=== PATIENT | female | born 1980 | race Two or more races ===

== ENCOUNTER → 2021-07-22 10:25 | Outpatient (CLI) | payer SELFPAY | PROVIDERS: Visit Provider Obstetrics & Gynecology | DX: Z34.90 Encounter for supervision of normal pregnancy, unspecified, unspecified trimester (principal) | CPT/HCPCS: 36415; 84702 ==

== ENCOUNTER → 2021-08-21 11:18 | Outpatient (CLI) | payer SELFPAY ==
[2021-08-21 12:31] LABS: Hematocrit 40.7 % (37.0-47.0); Hemoglobin 13.7 g/dL (12.2-16.2)
== END ==
PROVIDERS: Visit Provider Nurse Practitioner Obstetrics & Gynecology
DX: Z34.90 Encounter for supervision of normal pregnancy, unspecified, unspecified trimester (principal)
CPT/HCPCS: 36415; 85014; 85018; 86850; 86870

== ENCOUNTER → 2021-09-20 08:19 | Outpatient (CLI) | payer SELFPAY ==
[2021-09-20 08:42] LABS: Glucose,Fasting 209 mg/dl (74-100)
[2021-09-20 10:08] LABS: Glucose 1 Hour 339 mg/dL (74-100)
== END ==
PROVIDERS: Visit Provider Nurse Practitioner Obstetrics & Gynecology
DX: Z34.90 Encounter for supervision of normal pregnancy, unspecified, unspecified trimester (principal)
CPT/HCPCS: 36415; 82951

== ENCOUNTER → 2021-12-31 10:52 | Outpatient (CLI) | payer SELFPAY | PROVIDERS: Visit Provider Nurse Practitioner Obstetrics & Gynecology | DX: O36.1990 Maternal care for other isoimmunization, unspecified trimester, not applicable or unspecified (principal) | CPT/HCPCS: 36415 ==

== ENCOUNTER 2022-01-14 14:00 | Outpatient (CLI) | payer SELFPAY ==
[2022-01-14] VITALS (11 sets, daily range): BP systolic 144–187; BP diastolic 68–104; PULSE 88–121; RESP 17–20; TEMP 36.6; O2SAT 98; BMI 40.4
[2022-01-14 15:01] LABS: Microscopic, Urine URINE MICROSCOPIC (MICROSCOPIC)
[2022-01-14 15:06] LABS: Basophils # 0.1 K/mm3 (0-0.2); Basophils % 0.5 % (0.1-2.0); Eosinophils # 0.2 K/mm3 (0.0-0.4); Eosinophils % 1.5 % (0.1-12.0); Hematocrit 41.1 % (37.0-47.0); Lymphocytes # 2.5 K/mm3 (0.7-4.5); Lymphocytes % 23.2 % (10-50); Mean Corpuscular HGB Conc 34.1 g/dL (31.8-35.4); Mean Corpuscular Hemoglobin 29.5 pg (27.0-31.2); Mean Corpuscular Volume 86.3 fl (81-99); Mean Platelet Volume 14.4 fl (7.4-10.4); Monocytes # 0.8 K/mm3 (0.1-1.0); Monocytes % 6.9 % (1.7-9.3); Neutrophils # 7.4 K/mm3 (1.8-7.8); Neutrophils % 67.9 % (37.0-80.0); Platelet Count 153 K/mm3 (142-424); Red Blood Count 4.76 M/mm3 (4.20-5.40); Red Cell Distribution Width 14.3 % (11.5-17.5); White Blood Count 10.9 K/mm3 (4.8-10.8)
[2022-01-14 15:13] LABS: Appearance,Urine SL CLOUDY (Clear); Bilirubin,Urine Negative (Negative); Blood, Urine TRACE-I (Negative); Color,Urine YELLOW (Yellow); Glucose,Urine (UA) Negative (Negative); Ketones,Urine Negative (Negative); Leukocyte Esterase,Urine 2+ (Negative); Nitrate,Urine Negative (Negative); Protein,Urine 2+ (Negative); Specific Gravity, Urine 1.015 (1.005-1.030); Urobilinogen,Urine 0.2 EU/dl (0.2)
[2022-01-14 15:14] LABS: Alanine Aminotransferase 26 U/L (12-78); Aspartate Amino Transferase 34 U/L (14-36); Blood Urea Nitrogen 10 mg/dl (7-17); Calcium 9.7 mg/dl (8.4-10.2); Carbon Dioxide 17 mmol/L (22.0-30.0); Chloride 104 mmol/L (98-107); Creatinine Clearance Estimated 199 mL/min (50-200); Estimated Glomerular Filt Rate 110 ml/min (>60); GFR (African American) 133 ML/MIN (>60); Glucose 89 mg/dl (74-100); Sodium 134 mmol/L (136-145); Uric Acid 6.8 mg/dl (2.5-6.2)
[2022-01-14 15:25] LABS: Amphetamine/Metha Screen,Urine Negative ng/ml (<1000)
[2022-01-14 15:26] LABS: Barbiturates Screen,Urine Negative ng/ml (<200); Benzodiazepines Screen,Urine Negative ng/ml (<200)
[2022-01-14 15:27] LABS: Cannabinoid Screen,Urine Negative ng/ml (<50); Cocaine Screen,Urine Negative ng/ml (<300)
[2022-01-14 15:28] LABS: Methadone Screen,Urine Negative ng/ml (<300)
[2022-01-14 15:29] LABS: Opiate Screen,Urine Negative ng/ml (<300); Phencyclidine Screen,Urine Negative ng/ml (<25)
[2022-01-14 15:31] LABS: Creatinine,Urine Random 30 mg/dL (Not Estab.)
[2022-01-14 15:46] LABS: Bacteria,Urine 3+ /lpf; OB Protein,Urine (DIP) 2+ (Negative); RBC,Urine Occasional #/hpf (0-3)
[2022-01-14 16:13] LABS: Coronavirus 19, PCR Not Detected (NotDetected); Influenza A, PCR Not Detected (NotDetected); Influenza B, PCR Not Detected (NotDetected)
[2022-01-14 16:21] LABS: Activated Partial Thrombo Time 23.5 seconds (22.8-30.6); Fibrinogen 464 mg/dL (229.9-363.5); INR 0.81 (0.9-1.1); Prothrombin Time 8.9 seconds (10.1-12.5)
[2022-01-14 17:06] LABS: D-Dimer 2.07 ug/mL (0.0-0.5)
== END 2022-01-14 19:00 | disposition home or self-care (01) ==
LOC: OBOUT 14:02 → OB 14:03
PROVIDERS: Visit Provider Nurse Practitioner Obstetrics & Gynecology
DX: O26.893 Other specified pregnancy related conditions, third trimester (principal); Z3A.35 35 weeks gestation of pregnancy
CPT/HCPCS: 59025; 80048; 80305; 81001; 81002; 82043; 82570; 84450; 84460; 84550; 85025; 85378; 85384; 85610; 85730; 86850; 86870; 87086; 96360; C9803; U0003; U0005

== ENCOUNTER → 2022-01-16 12:51 | Outpatient (CLI) | payer SELFPAY ==
[2022-01-16 13:18] LABS: Collection Time,Urine 24 hours; Total Volume,Urine 2200 mL (600-1600)
[2022-01-16 13:29] LABS: Creatinine 24 Hour,Urine 1144 mg/24hr (630-2500); Creatinine,Urine Random 52 mg/dL (Not Estab.)
[2022-01-16 13:36] LABS: Total Protein 24 Hour,Urine 8646 mg/24 hr (40-90)
[2022-01-16 13:56] LABS: Alanine Aminotransferase 23 U/L (12-78); Anion Gap 12.6 mEq/L (5-15); Aspartate Amino Transferase 31 U/L (14-36); Blood Urea Nitrogen 11 mg/dl (7-17); Calcium 9.6 mg/dl (8.4-10.2); Carbon Dioxide 19 mmol/L (22.0-30.0); Chloride 105 mmol/L (98-107); Estimated Glomerular Filt Rate 110 ml/min (>60); GFR (African American) 133 ML/MIN (>60); Glucose 93 mg/dl (74-100); Potassium 4.6 mmoL/L (3.5-5.1); Sodium 132 mmol/L (136-145)
[2022-01-16 14:03] LABS: Uric Acid 7.1 mg/dl (2.5-6.2)
[2022-01-16 14:04] LABS: D-Dimer 1.73 ug/mL (0.0-0.5)
[2022-01-16 14:26] LABS: Activated Partial Thrombo Time 26.7 seconds (22.8-30.6); Fibrinogen 449 mg/dL (229.9-363.5); INR 0.86 (0.9-1.1); Prothrombin Time 9.4 seconds (10.1-12.5)
[2022-01-16 17:49] LABS: Basophils # 0.1 K/mm3 (0-0.2); Basophils % 0.7 % (0.1-2.0); Eosinophils # 0.2 K/mm3 (0.0-0.4); Hematocrit 37.7 % (37.0-47.0); Lymphocytes # 2.4 K/mm3 (0.7-4.5); Lymphocytes % 25.1 % (10-50); Mean Corpuscular HGB Conc 34.4 g/dL (31.8-35.4); Mean Corpuscular Hemoglobin 29.1 pg (27.0-31.2); Mean Corpuscular Volume 84.5 fl (81-99); Mean Platelet Volume 17.4 fl (7.4-10.4); Monocytes # 0.8 K/mm3 (0.1-1.0); Neutrophils # 6.1 K/mm3 (1.8-7.8); Neutrophils % 64.2 % (37.0-80.0); Platelet Count 144 K/mm3 (142-424); Red Blood Count 4.46 M/mm3 (4.20-5.40); Red Cell Distribution Width 14.3 % (11.5-17.5); White Blood Count 9.5 K/mm3 (4.8-10.8)
== END ==
PROVIDERS: Visit Provider Nurse Practitioner Obstetrics & Gynecology
DX: O13.9 Gestational [pregnancy-induced] hypertension without significant proteinuria, unspecified trimester (principal); O24.419 Gestational diabetes mellitus in pregnancy, unspecified control; Z3A.35 35 weeks gestation of pregnancy
CPT/HCPCS: 36415; 80048; 82570; 84155; 84450; 84460; 84550; 85025; 85378; 85384; 85610; 85730